=== PATIENT | male | born 1935 | race Caucasian/White ===

== ENCOUNTER 2017-07-22 21:03 | Emergency (ER) | payer OTHER ==
[~2017-07-22] VITALS: Ht 172.7 cm; Wt 68.3 kg
[2017-07-22 21:57] LABS: BASOPHIL (%) 0.3 % (0-1); EOSINOPHIL (%) 0.8 % (0-5); EOSINOPHIL COUNT 0.1 K/uL (0-0.3); HEMATOCRIT 42.9 % (38.0-50.0); HEMOGLOBIN 14.3 G/DL (12.5-16.6); IMMATURE GRANULOCYTE (%) 0.3 % (0.0-0.7); LYMPHOCYTE (%) 22.6 % (15-42); LYMPHOCYTE COUNT 1.4 K/uL (1.0-2.8); MCH 31.5 PG (29.0-34.0); MCHC 33.3 G/DL (30.0-36.0); MCV 94.5 FL (86-99); MONOCYTE (%) 7.4 % (3-12); MONOCYTE COUNT 0.5 K/uL (0-0.8); NEUTROPHIL (%) 68.6 % (45-76); NEUTROPHIL COUNT 4.2 K/uL (1.8-6.4); PLATELET COUNT 122 K/uL (156-360); RBC DIS.WIDTH-CV 14.3 % (11.8-14.6); RBC DIS.WIDTH-SD 50.4 % (39-53); RED BLOOD COUNT 4.54 M/uL (4.00-5.50); WHITE BLOOD COUNT 6.2 K/uL (4.1-10.2)
[2017-07-22 22:05] LABS: ALBUMIN 4.1 g/dL (3.2-4.8)
[2017-07-22 22:06] LABS: CHLORIDE 104 mEq/L (99-109); POTASSIUM 3.9 mEq/L (3.7-5.4); SODIUM 144 mEq/L (136-147)
[2017-07-22 22:08] LABS: GLUCOSE 118 mg/dL (70-99); TOTAL PROTEIN 6.7 g/dL (6.4-8.3)
[2017-07-22 22:10] LABS: TOTAL BILIRUBIN 0.6 mg/dL (0.0-1.0)
[2017-07-22 22:11] LABS: ALKALINE PHOSPHATASE 63 IU/L (3-129)
[2017-07-22 22:12] LABS: CREATININE 0.8 mg/dL (0.6-1.3); GFR ESTIMATE (CALCULATED) > 59 mL/min/ (58.99-99999)
[2017-07-22 22:13] LABS: AST (GOT) 14 IU/L (2-34); UREA NITROGEN (BUN) 23 mg/dL (9-23)
[2017-07-22 22:14] LABS: ALT (GPT) 17 IU/L (3-49)
[2017-07-22 22:20] LABS: TROP-I INTERPRETATION NEGATIVE; TROPONIN-I 0.01 ng/mL (0.0-0.30)
[2017-07-22 22:53] LABS: APPEARANCE CLEAR ((CLEAR)); BILIRUBIN NEGATIVE; BLOOD NEGATIVE; COLOR YELLOW ((YELLOW)); GLUCOSE (STRIP) NEGATIVE; KETONES NEGATIVE; LEUKOCYTES NEGATIVE; NITRITE NEGATIVE; PROTEIN (STRIP) NEGATIVE; SPECIFIC GRAVITY 1.018 (1.000-1.030); UCUL ADDED? NO
[2017-07-23 01:00] VITALS: BP 163/97
== END 2017-07-23 01:00 | disposition home or self-care (01) ==
LOC: EME → EDBD 21:03 → EME 07-23 01:00
PROVIDERS: Emergency Medicine
DX: F03.90 Unspecified dementia, unspecified severity, without behavioral disturbance, psychotic disturbance, mood disturbance, and anxiety (principal); I10 Essential (primary) hypertension
CPT/HCPCS: 70450; 71045; 80053; 81003; 82800; 83605; 84484; 85025; 93005; 99281; 99285

== ENCOUNTER 2017-08-04 21:06 | Inpatient (IN) | payer OTHER ==
[~2017-08-04] VITALS: Ht 170.2 cm; Wt 95.0 kg
[2017-08-04 21:36] LABS: HEMATOCRIT 40.3 % (38.0-50.0); HEMOGLOBIN 13.7 G/DL (12.5-16.6); MCV 94.2 FL (86-99); PLATELET COUNT 134 K/uL (156-360); RBC DIS.WIDTH-CV 14.2 % (11.8-14.6); RBC DIS.WIDTH-SD 48.6 % (39-53); RED BLOOD COUNT 4.28 M/uL (4.00-5.50); WHITE BLOOD COUNT 4.4 K/uL (4.1-10.2)
[2017-08-04 21:45] LABS: ALBUMIN 3.8 g/dL (3.2-4.8)
[2017-08-04 21:46] LABS: CHLORIDE 105 mEq/L (99-109); POTASSIUM 3.7 mEq/L (3.7-5.4); SODIUM 142 mEq/L (136-147)
[2017-08-04 21:48] LABS: GLUCOSE 97 mg/dL (70-99); TOTAL PROTEIN 6.5 g/dL (6.4-8.3)
[2017-08-04 21:50] LABS: TOTAL BILIRUBIN 1.2 mg/dL (0.0-1.0)
[2017-08-04 21:51] LABS: ALKALINE PHOSPHATASE 68 IU/L (3-129)
[2017-08-04 21:52] LABS: CREATININE 0.7 mg/dL (0.6-1.3); GFR ESTIMATE (CALCULATED) > 59 mL/min/ (58.99-99999)
[2017-08-04 21:53] LABS: AST (GOT) 34 IU/L (2-34); UREA NITROGEN (BUN) 17 mg/dL (9-23)
[2017-08-04 21:54] LABS: ALT (GPT) 37 IU/L (3-49)
[2017-08-04 22:00] LABS: TROP-I INTERPRETATION NEGATIVE; TROPONIN-I < 0.01 ng/mL (0.0-0.30)
[2017-08-05] MEDS ORDERED: LASIX20 MG PO (14:40)
[2017-08-05] MEDS ORDERED: ZESTRIL5 MG PO (14:41)
[2017-08-05] MEDS ORDERED: ATIVAN1 MG PO (14:41)
[2017-08-05] MEDS ORDERED: LEVSIN-SL0.125 MG SL (14:42)
[2017-08-05] MEDS ORDERED: SEROQUEL50 MG PO (14:42)
[2017-08-05] MEDS ORDERED: ATIVAN0.5 MG PO (14:43)
[2017-08-05] MEDS ORDERED: TYLENOL EXTRA500 MG PO (14:44)
[2017-08-05] MEDS ORDERED: MORPHINE CON20 MG/M1 PO (14:45)
[2017-08-05 22:42] VITALS: BP 137/69
[2017-08-08 01:04] VITALS: BP 113/67
[2017-08-08 04:30] VITALS: BP 114/74
[2017-08-08 07:10] VITALS: BP 150/66
[2017-08-11 00:31] VITALS: BP 132/70
[2017-08-15 08:27] VITALS: BP 174/79
[2017-08-16 09:09] VITALS: BP 122/84
[2017-08-16] MEDS ORDERED: QUETIAPINE FUM100 MG PO (11:16)
== END 2017-08-16 15:37 | DRG 69 ==
LOC: EME 21:06 → 5EAST 08-05 13:39 → EDOF 08-05 13:39 → ENRESERV 08-05 13:40 → 5EAST 08-05 16:10
PROVIDERS: Emergency Medicine
DX: I67.89 Other cerebrovascular disease (principal); F01.51 Vascular dementia, unspecified severity, with behavioral disturbance; I10 Essential (primary) hypertension; Z86.73 Personal history of transient ischemic attack (TIA), and cerebral infarction without residual deficits; Z85.038 Personal history of other malignant neoplasm of large intestine; E78.5 Hyperlipidemia, unspecified; E11.9 Type 2 diabetes mellitus without complications; Z51.5 Encounter for palliative care; Z66 Do not resuscitate
CPT/HCPCS: 71045; 80053; 81003; 84484; 85027; 93005; 99281; 99285; J1650; J2060; J3486